=== PATIENT | male | born 1945 | race Caucasian/White ===

== ENCOUNTER 2016-07-27 14:22 | Inpatient (IN) ==
[2016-07-27] MEDS ORDERED: *HR* OxyCODONE Immed Rel 5 MG TABLET PO PRN ×2 (18:12→18:27)
[2016-07-27] MEDS ORDERED: Acetaminophen 325 MG TABLET PO SCH (21:00)
[2016-07-28 05:53] LABS: INR 1.1; Prothrombin Time 12.2 Seconds (9.4-12.1)
[2016-07-28 05:56] LABS: Activated Partial Thrombo Time 30.7 Seconds (26.0-36.0)
[2016-07-28 05:57] LABS: Hematocrit 27.7 % (37.5-50.1); Hemoglobin 9.3 g/dL (12.9-16.9); Immature Granulocytes % 0.4 % (0-4); Lymphocytes % 18.5 %; Mean Corpuscular HGB Conc 33.6 g/dL (31.6-35.5); Mean Corpuscular Hemoglobin 31.8 pg (28.0-33.3); Mean Corpuscular Volume 94.9 fL (83.0-100.0); Mean Platelet Volume 9.1 fL (9.4-12.4); Platelet Count 233 K/mcL (140-400); Red Blood Count 2.92 M/mcL (4.19-5.50); Red Cell Distribution Width 13.5 % (11.5-14.5)
[2016-07-28 05:58] LABS: Basophils % 0.3 %; Eosinophils # 0.5 K/mcL (0.0-0.6); Eosinophils % 6.9 %; Lymphocytes # 1.3 K/mcL (0.6-4.6); Monocytes # 1.1 K/mcL (0.0-1.3); Monocytes % 14.9 %; Neutrophils # 4.2 K/mcL (1.6-8.9)
[2016-07-28 06:01] LABS: BUN/Creatinine Ratio 13 (6-26); Blood Urea Nitrogen 10 mg/dL (8-26); Calcium 8.7 mg/dL (8.6-10.8); Carbon Dioxide 24 mEq/L (19-29); Chloride 102 mEq/L (98-109); Glucose 126 mg/dL (70-99); Osmolality,Calculated 285 (280-300); Potassium 3.9 mEq/L (3.5-4.5); Sodium 137 mEq/L (136-145); eGFR For African Americans > 60 (> 60); eGFR For Non-African Americans > 60 (> 60)
[2016-07-28] MEDS: *HR* Enoxaparin 40 MG/0.4 ML SYRINGE SQ SCH (06:19)
[2016-07-28] MEDS ORDERED: Cyanocobalamin (B-12) 1,000 MCG TABLET PO SCH (09:00)
[2016-07-28] MEDS: Aspirin 81 MG TAB.CHEW PO SCH (09:13)
[2016-07-28] MEDS: FOLIC ACID 400 MG PO SCH (09:14)
[2016-07-28] MEDS: Multivit/Ca/Min/Fe/FA 1 TAB TABLET PO SCH (09:15)
[2016-07-28] MEDS: OSCAL D PO SCH (09:15)
[2016-07-28] MEDS: Lisinopril 20 MG TABLET PO SCH (09:18)
--- NOTE | 2016-07-28 11:12 | Internal Med History&Physical ---
Date of Encounter: 07/28/16 Time of Encounter: 11:00 Assessment and Plan (1) History of total left hip arthroplasty Current visit: Yes Status: Acute Patient is here for rehabilitation for his hip surgery (2) Seizure disorder Current visit: Yes Status: Acute Taking meds for seizure disorder Internal Medicine - H&P: HPI Chief complaint: Patient is here for rehabilitation status post left total hip replacement Admitted From: Hospital to Hospital Transfer Plans for Post Hospital Care: Home History of present illness: Mr. Zapata is a 70 year old male Past Med Surg Social Fam HX - Past Medical History Medical history: hypertension, seizures Psychiatric history: no psych history - Social History Smoking Status: Never smoker Smokeless Tobacco Status: No Alcohol use: occasionally Drug use: none Internal Medicine - H&P: Meds Allergies Penicillins Allergy (Verified 07/27/16 17:53) Diarrhea All Systems PM: A 10-system review of systems was performed and is negative for pertinent findings except as documented above in the HPI. - Constitutional Vitals: Temp Pulse Resp BP Pulse Ox 97.9 F 98 16 155/87 92 L 07/28/16 07:00 07/28/16 07:00 07/28/16 07:00 07/28/16 07:00 07/28/16 07:00 - Head Head exam: Present: atraumatic, normal inspection, normocephalic - Neck Neck exam general surgery: Present: supple, trachea midline. Absent: lymphadenopathy - Respiratory Respiratory exam: Present: CTAB. Absent: accessory muscle use, rales, rhonchi, wheezes - Cardiovascular Cardiovascular exam: Present: RRR, +S1, +S2. Absent: diastolic murmur, gallop, rubs, systolic murmur - GI/Abdominal GI/Abdominal exam: Present: normal bowel sounds, soft, no peritoneal signs. Absent: distended, tenderness Internal Med - H&P Results - Labs CBC & Chem 7: 07/28/16 05:15 07/28/16 05:15 Labs: Lab looks stable Short CBC 07/28/16 Range/Units 05:15 WBC 7.1 (4.3-11.1) K/mcL Hgb 9.3 L (12.9-16.9) g/dL Hct 27.7 L (37.5-50.1) % Plt Count 233 (140-400) K/mcL Neutrophils # 4.2 (1.6-8.9) K/mcL BMP 07/28/16 05:15 Sodium 137 Potassium 3.9 Chloride 102 Carbon Dioxide 24 BUN 10 Creatinine 0.80 Glucose 126 H Lab looks okay Calcium 8.7 - VTE Documentation of Mechanical Device: Graduated compression elastic hosiery
[2016-07-28] MEDS: Acetaminophen 325 MG TABLET PO SCH ×3 (14:24→21:48)
[2016-07-28 19:23] VITALS: BP 124/79
[2016-07-29] MEDS: Acetaminophen 325 MG TABLET PO SCH ×4 (00:26→10:22)
[2016-07-29] MEDS: *HR* Enoxaparin 40 MG/0.4 ML SYRINGE SQ SCH (04:24)
[2016-07-29] MEDS ORDERED: Cyanocobalamin (B-12) 1,000 MCG TABLET PO SCH (09:00)
[2016-07-29] MEDS: Multivit/Ca/Min/Fe/FA 1 TAB TABLET PO SCH ×2 (09:49→10:24)
[2016-07-29] MEDS: Lisinopril 20 MG TABLET PO SCH ×2 (09:49→10:24)
[2016-07-29] MEDS: Aspirin 81 MG TAB.CHEW PO SCH ×2 (09:50→10:24)
[2016-07-29] MEDS: FOLIC ACID 400 MG PO SCH (10:17)
[2016-07-29] MEDS: OSCAL D PO SCH (10:17)
--- NOTE | 2016-07-29 13:17 | Discharge Summary ---
Date of Encounter: 07/29/16 Time of Encounter: 13:00 - Discharge Diagnosis (1) History of total left hip arthroplasty Priority: Primary Status: Acute Comments: Patient is moving about the incision is clean and dry and he will be discharged in the company of a friend today. Castellon is able to get up and down on his own and ambulate. (2) Seizure disorder Priority: Secondary Status: Acute Comments: Iris Ceja problem with seizures - Discharge Medications Home Medications: Phenytoin Sodium Extended [Phenytek] 300 mg PO DAILY 07/28/16 [History] Allergies/Adverse Reactions: Allergies Penicillins Allergy (Verified 07/27/16 17:53) Diarrhea Date of admission: 07/27/16 18:04 Primary care physician: ISABELA Roque Consults: 07/27/16 18:05 Consult to Occupational Therapy [CONS] Routine Comment: Evaluate, develop and implement POC Consult to Physical Therapy [CONS] Routine Comment: Evaluate, develop and implement POC Consult to Recreational Therapy [CONS] Routine Comment: Evaluate, develop and implement POC Consult to Inner Tube Cutter [CONS] Routine Reason for SW Consult: Rehab patient Discharging clinician: Fortino Gonzales Anticipated date of discharge: 07/29/16 - Patient Status Disposition: Home, Self-Care Condition: Good Functional capacity at discharge: uses cane/walker Overall status at discharge: patient is progressing back to baseline - Discharge Instructions Follow Up With: leonie castillo [Other] - 08/21/16 3:45 pm Jo Ruiz CNP [Primary Care Provider] - (Follow up with Orthopedic Surgery in 4 weeks Leonie Castillo MD [id number], [place] [phone] Follow up with Primary Physican in 5-7 days Leola Clements CNP) - Diet and Activity Activity: ambulate only with your walker Diet: advance to your usual diet Interval History: Ration was admitted because he lives alone and had a left total hip repair. Hospital course: Mr. Zapata is a 70 year old male -year-old male who came here for rehabilitation after total hip and has done very well. Discharge data company of his fracture - Time Spent with Patient Total time spent providing and/or coordinating discharge services: - Constitutional Vitals: Temp Pulse Resp BP Pulse Ox 98.5 F 89 16 124/79 96 07/28/16 19:21 07/28/16 19:21 07/28/16 19:21 07/28/16 19:21 07/28/16 19:21 - Head Head exam: Present: atraumatic, normal inspection, normocephalic - Neck Neck exam general surgery: Present: supple, trachea midline. Absent: lymphadenopathy - Respiratory Respiratory exam: Present: CTAB. Absent: accessory muscle use, rales, rhonchi, wheezes - Cardiovascular Cardiovascular exam: Present: RRR, +S1, +S2. Absent: diastolic murmur, gallop, rubs, systolic murmur - VTE Documentation of Mechanical Device: Graduated compression elastic hosiery
== END 2016-07-29 14:25 | disposition home or self-care (01) | DRG 561 ==
LOC: INPGRE 18:04
PROVIDERS: ADMIT Internal Medicine; ATTEND Internal Medicine